=== PATIENT | female | born 2005 | race Two or more races ===

== ENCOUNTER 2023-04-11 11:39 | Outpatient (REF) | payer MEDICAID, SELFPAY ==
[2023-04-11 14:55] LABS: Cholesterol 139 mg/dL (<200); HDL Cholesterol 41 mg/dL (>40); LDL Cholesterol Calculated 84 mg/dL (<100); Triglycerides 72 mg/dL (<150)
[2023-04-11 15:49] LABS: CT PCR NOT DETECTED (Not Detect.); NG PCR NOT DETECTED (Not Detect.)
[2023-04-12 05:29] LABS: HIV AB/AG Nonreactive (Nonreactive); HIV Num 1 0.05 S/CO (0.00-0.99); ~HepC Num1 0.07 S/CO (0.00-0.79); ~Hepatitis C Antibody Nonreactive (Nonreactive)
== END 2023-04-11 11:40 | disposition home or self-care (01) ==
LOC: HO.CHCLDS 11:39
PROVIDERS: Visit Provider Family Medicine
DX: Z00.00 Encounter for general adult medical examination without abnormal findings (principal); Z11.4 Encounter for screening for human immunodeficiency virus [HIV]; Z11.3 Encounter for screening for infections with a predominantly sexual mode of transmission
CPT/HCPCS: 0353U; 80061; 86803; 87389